=== PATIENT | female | born 1965 | race Caucasian/White ===

== ENCOUNTER 2016-10-01 18:01 | Emergency (ER) | payer OTHER, SELFPAY ==
[~2016-10-01] VITALS: Ht 157.5 cm; Wt 86.4 kg
[~2016-10-01 18:01] MED LIST: NOCURR
[2016-10-01] MEDS ORDERED: NAPR375T4 PO (18:12)
[2016-10-01] MEDS ORDERED: KETOROLAC TROMETHAMINE 60 MG/2 ML VIAL IM ONE (21:00)
[2016-10-01] MEDS ORDERED: MORPHINE SULFATE 4 MG/ML SYRINGE IM ONE (21:00)
[2016-10-01 21:59] VITALS: BP 148/72
== END 2016-10-01 23:07 | disposition home or self-care (01) ==
LOC: EMS 18:02
DX: M17.11 Unilateral primary osteoarthritis, right knee (principal)
CPT/HCPCS: 29530; 73562; 96372; 99284; J1885; J2270